=== PATIENT | female | born 1995 | race Caucasian/White ===

== ENCOUNTER 2022-05-19 20:05 | Inpatient (IN) ==
--- NOTE | 2022-05-19 20:39 | History & Physical Report ---
Date of Service May 19, 2022 Assessment & Plan (1) Supervision of normal intrauterine in primigravida: Plan: Early labor her cervix is only 1 cm we will monitor for now the patient is scheduled to be induced in approximately 36 hours so likely if makes progress we will admit the patient History of Present Illness Primary Care Provider: Samantha Lazaro DO Current Estimate 05/12/22 LMP (Certain) 40w 2d Other Estimates 05/11/22 Ultrasound #1 40w 3d LMP: 08/05/21 : 2 Full term: 0 Premature: 0 Total Number of Induced Abortions: 0 Total Number of Spontaneous Abortions: 0 Ectopics: 1 Multiple births: 0 Number of Living Children: 0 and Delivery Plans Genital Herpes *Valtrex @ 36wks. Prior ectopic 2020 MTX, [facility] Prominent Renal pelves bilaterally *resolved. Allergies Allergy/AdvReac Type Severity Reaction Status Date / Time latex Allergy Severe rash and Verified 05/19/22 20:20 skin soreness cefdinir [From Omnicef] Allergy Intermediate Shortness Verified 05/19/22 20:20 of breath, hives nickel Allergy Intermediate Rash Verified 05/19/22 20:20 Home Medications Medication Instructions Recorded Confirmed Type levocetirizine 5 mg tablet (Xyzal) 5 mg PO DAILY PRN Allergy Symptoms 07/06/19 05/19/22 History valacyclovir 1 gram tablet 1,000 mg PO Q12H PRN genital 07/03/20 05/19/22 Rx (Valtrex) herpes 7 days #21 tabs prenat.vits,jose f,mov-ergo-vvrjf 1 tab PO DAILY 01/23/21 05/19/22 History Saccharomyces boulardii [Probiotic PO 09/27/21 05/14/22 History (S.boulardii)] albuterol sulfate 90 mcg/actuation 2 inh inhalation Q4H PRN Shortness 11/15/21 05/19/22 Rx breath activated powder inhaler Of Breath Or Wheezing #1 ea valacyclovir 500 mg tablet 500 mg PO BID #60 tabs 04/16/22 05/19/22 Rx (Valtrex) Patient History Medical History Anxiety Asthma Depression Nausea Surgical History History of esophagogastroduodenoscopy (EGD) History of wisdom tooth extraction S/P tonsillectomy and adenoidectomy Family History Mother Anxiety Father Anxiety Alcohol abuse Depression Brother Anxiety Depression Drug abuse Grandmother (Paternal) History of kidney cancer Depression Diabetes Myocardial infarction Aunt Breast cancer Grandmother (Maternal) Diabetes Grandfather (Paternal) Diabetes Grandfather (Maternal) Diabetes Denies family history of Ovarian cancer Prostate cancer Colorectal cancer Social History (Updated 09/27/21 @ 13:14 by Mar Butsamante) Smoking Status: Never smoker Tobacco Type: Cigarettes Second Hand Exposure: No; Hx Alcohol Use: No Hx Substance Use: Yes (medical marijuana) Last Used Substance: Days (ago) Last Used Substance Other:: 06/18/20 Preferred Language: Indonesian Communication Ability: Effective Visual Impairment: Limited Hearing Ability: Normal 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 Beliefs That Will Affect Care: None marital status: Single marital status details: Juan Carlos (27) [phone] Current Living Situation: Significant Other Current Living Situation Comment: lives with FOB current occupational status: employed 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
[2022-05-19] MEDS ORDERED: LIDOCAINE 1% LOCAL 20 ML VIAL INFIL PRN (22:40)
[2022-05-19] MEDS ORDERED: LACTATED RINGER'S 1,000 ML IV PRN (22:40)
[2022-05-19] MEDS ORDERED: OXYTOCIN 30 UNITS/500 ML BAG IV PRN (22:40)
[2022-05-19 23:02] LABS: Hematocrit (blood only) 36.8 % (34.1-44.9); Hemoglobin 12.7 g/dl (12.0-16.0); Mean Corpuscular Hemoglobin 29.5 pg (25.0-34.0); Mean Corpuscular Hgb Conc 34.5 g/dL (32.0-36.0); Mean Corpuscular Volume 85.6 fL (80.0-100.0); Platelet Count 166 K/uL (130-400); RDW Coefficient of Variation 14.3 % (11.5-14.5); RDW Standard Deviation 44.1 fL (36.4-46.3); White Blood Count 14.97 K/ul (4.8-10.8)
--- NOTE | 2022-05-20 06:05 | Labor Progress Brief Note ---
Date of Service May 20, 2022 Patient unmedicated and largely wishes minimal intervention at this stage she is 9 cm unmedicated heart rate is category 1 patient does not wish pain medication at this time or intervention following closely Assessment & Plan Admission and Anticipated Discharge Date Admission Date: May 19, 2022 Results & Data ([facility]) Vital Signs (Past 12 Hours) Vital Signs Temp Pulse Resp BP 05/20/22 03:50 98.4 F 89 20 134/61 05/20/22 02:03 98.1 F 05/20/22 00:41 98.4 F 05/19/22 23:41 98.4 F 78 20 131/72 05/19/22 20:19 98.4 F 98 H 18 136/86 05/19/22 20:22 98.4 F 98 H 18 136/86 Coding Level of Care Code None
--- NOTE | 2022-05-20 09:18 | Delivery Summary ---
Vaginal Delivery Summary Date of Service May 20, 2022 Vaginal Delivery Summary and 2nd Degree LAC PREOPERATIVE DIAGNOSIS: 1. Single intrauterine at 41 1/7 wga 2. Labor POSTOPERATIVE DIAGNOSIS: 1. Single intrauterine at 41 1/7 wga 2. Labor 3. Delivered PROCEDURE: 1. Normal spontaneous vaginal delivery. SURGEON: Lore Jeffries MD ANESTHESIA: Local ESTIMATED BLOOD LOSS: 300 mL FLUIDS: Continuous LR. URINE OUTPUT: None. COMPLICATIONS: None. CONDITION: Stable. INDICATIONS: 27 yo at 41 1/7 wga presented last evening in labor. She progressed spontaneously to complete and desired to push FINDINGS: A viable female , weight pending with Apgars of 7 and 9 at 1 and 5 minutes respectively. SPECIMEN: Cord blood, cord gas, placenta OPERATIVE REPORT: The patient progressed to 10 cm, 100% effaced and +2 station, pushed over intact perineum with anesthesia to deliver a viable female infant, weight and Apgars as above. Head of delivered in SARBJIT position. No nuchal cord was present. Body and shoulders were delivered without difficulty. was delivered to maternal abdomen and nursing staff. Delayed cord clamping was delayed due to infant not being as vigorous. Cord was clamped and cut. Cord blood was obtained. Placenta delivered spontaneously intact with 3-vessel cord and what appeared to be a succenturiate lobe. IV oxytocin and fundal massage were given for excellent hemostasis. Vagina, cervix, perineum, and placenta were inspected. A second degree laceration was noted and repaired in the usual fashion with 3-0 vicryl after local anesthetic was given. A right side tear in the hymenal ring was made hemostatic with an interrupted stitch. Sponge and needle counts correct x2. No sponges were left behind. Mother and stable in immediate period. [facility] [place] Vaginal Delivery Codes: 41093 global code for the antepartum, delivery, and post- Delivery Type Details: and 2nd Degree LAC
[2022-05-20] MEDS ORDERED: DIPHTHERIA/TETANUS/PERTUSSIS 0.5 ML SYR/VIAL IM ONE (09:30)
[2022-05-20] MEDS ORDERED: OXYTOCIN 30 UNITS/500 ML BAG IV PRN (09:30)
[2022-05-20] MEDS ORDERED: HYDROCORTISONE ACETATE 25 MG SUPP PR PRN (09:30)
[2022-05-20] MEDS ORDERED: BENZOCAINE 20% AER SPR 82.5 GM CAN EXT PRN (09:30)
[2022-05-20] MEDS ORDERED: ALBUTEROL HFA 8 GM INHALER INH PRN (09:37)
[2022-05-20] MEDS ORDERED: CETIRIZINE HCL 10 MG TABLET PO PRN (09:39)
[2022-05-20] MEDS: IBUPROFEN 600 MG TAB PO PRN ×3 (09:52→20:06)
[2022-05-20] MEDS: ACETAMINOPHEN 325 MG TAB PO PRN ×2 (10:10→16:36)
[2022-05-20] MEDS: DOCUSATE SODIUM 100 MG CAP PO SCH (20:06)
[2022-05-21] MEDS: ACETAMINOPHEN 325 MG TAB PO PRN ×2 (00:09→14:14)
--- NOTE | 2022-05-21 05:51 | Obstetrical Progress Note ---
Date of Service <Aranza Lottabiliokaila - Last Filed: 05/21/22 06:48> May 21, 2022 Assessment & Plan <Aranza Lottabiliokaila - Last Filed: 05/21/22 06:48> (1) care following vaginal delivery: Patient is PPD 1 s/p and doing well. - Eating well, voiding well, ambulating well - Vitals reviewed and within normal limits - Pain well controlled with analgesics - OOB, ambulation, diet progression as tolerated - Blood type: B+, GBS neg, rubella immune - Plan to discharge tomorrow - After discharge, 6 week follow up with Dr. Jeffries <Lore Jeffries MD - Last Filed: 05/21/22 07:17> (1) care following vaginal delivery: Subjective <Aranza Lottabiliokaila - Last Filed: 05/21/22 06:48> Patient is a 27 yo female who is now PPD #1 following spontaneous vaginal delivery at 41+1 weeks. Reports feeling well this morning. She denies abdominal cramping and 0/10 pain well managed on analgesics. Voiding without issue. Tolerating regular meals overnight and able to ambulate some. She has passed gas but no bowel movements. Persistent lochia with some improvement this morning. Currently breast feeding. Review of Systems Denies fever, chills, sweats. Denies SOB, difficulty breathing, chest pain, palpitations, and chest pressure. Denies breast pain. Denies dysuria. Denies headache or changes in vision. Physical Exam <Aranza LottDO salvador - Last Filed: 05/21/22 06:48> General: Alert and oriented. No acute distress. CV: Regular rate and rhythm. No murmurs. Respiratory: CTA bilaterally. No rhonchi, wheezes, or crackles. No increased work of breathing. Abdomen: Positive bowel sounds. Soft, nontender, non distended. Uterus: Fundus firm and palpable 3 cm below the umbilicus. Lower extremities: Bilateral, nonpitting LE edema from feet to mid calf. No deep calf pain. David's negative bilaterally. Results & Data ([facility]) <Aranza SteeleDikr Maxwell DO - Last Filed: 05/21/22 06:48> Vital Signs (Past 12 Hours) Vital Signs Temp Pulse Resp BP BP Pulse Ox O2 Del Method 05/21/22 03:45 36.7 C 77 16 112/67 98 Room Air 05/21/22 00:00 36.9 C 78 18 115/76 97 Room Air 05/20/22 20:00 37 C 87 16 111/74 100 Room Air <Lore Jeffries MD - Last Filed: 05/21/22 07:17> Co-Signing Physician Notes Resident Physician Supervision Note: I interviewed and examined the patient. Discussed with Dr. Maxwell and agree with findings and plan as documented in the note. Any exceptions or clarifications are listed here: PP1 s/p , doing well. VSS, exam benign and wnl. Continue routine pp care Documented By: Lore Jeffries MD Resident Activity Tracking <Aranza Maxwell DO - Last Filed: 05/21/22 06:48> Resident Involvement: Resident Care Provided Care Provided: OB Delivery
[2022-05-21 06:33] LABS: Hematocrit (blood only) 28.8 % (34.1-44.9); Hemoglobin 9.7 g/dl (12.0-16.0)
[2022-05-21] MEDS: IBUPROFEN 600 MG TAB PO PRN ×2 (08:11→20:38)
[2022-05-21] MEDS: PRENATAL VITAMIN 1 TAB PO SCH (08:11)
[2022-05-21] MEDS: DOCUSATE SODIUM 100 MG CAP PO SCH ×2 (08:11→20:37)
[2022-05-21] MEDS ORDERED: bisacodyL 5 MG TABEC PO SCH (20:00)
--- NOTE | 2022-05-22 06:22 | Obstetrical Progress Note ---
Date of Service <Aranza SteeleDirk Maxwell DO - Last Filed: 05/22/22 07:00> May 22, 2022 Assessment & Plan <Aranza SteeleDirk Maxwell DO - Last Filed: 05/22/22 07:00> (1) care following vaginal delivery: Patient is PPD 2 s/p and doing well. - Eating well, voiding well, ambulating well - Vitals reviewed and within normal limits - Pain well controlled with analgesics - OOB, ambulation, diet progression as tolerated - Blood type: B+, GBS neg, rubella immune - Plan to discharge today - After discharge, 6 week follow up with Dr. Jeffries <Bea Smith MD, FACOG - Last Filed: 05/22/22 07:47> (1) care following vaginal delivery: Day #:: 2 Subjective <Aranza Bell DO Hans - Last Filed: 05/22/22 07:00> Patient is a 27 yo female who is now PPD #2 following spontaneous vaginal delivery at 41+1 weeks. Reports feeling well this morning. She reports abdominal cramping and 4/10 pain well managed on analgesics. Voiding without issue. Tolerating regular meals overnight and able to ambulate some. She has passed gas and had bowel movements. Persistent lochia with some improvement this morning. Currently breast feeding. Pt does endorse some anxiety and chest tightness that feels similar to tightness she has had in the past. She was managing her anxiety with medical marijuana before but stopped while she was . She explains she may need to follow up with her PCP to discuss her anxiety. Review of Systems Denies fever, chills, sweats. Denies SOB, difficulty breathing, chest pain, palpitations, and chest pressure. Endorses some chest tightness while feeling anxious. Denies breast pain. Denies dysuria. Denies headache or changes in vision. Physical Exam <Aranzaanushka Maxwell DO - Last Filed: 05/22/22 07:00> General: Alert and oriented. No acute distress. CV: Regular rate and rhythm. No murmurs. Respiratory: CTA bilaterally. No rhonchi, wheezes, or crackles. No increased work of breathing. Abdomen: Positive bowel sounds. Soft, nontender, non distended. Uterus: Fundus firm and palpable 3 cm below the umbilicus. Lower extremities: Bilateral, nonpitting LE edema from feet to mid calf. No deep calf pain. David's negative bilaterally. Results & Data ([facility]) <Aranza Maxwell DO - Last Filed: 05/22/22 07:00> Vital Signs (Past 12 Hours) Vital Signs Temp Pulse Resp BP Pulse Ox O2 Del Method 05/22/22 00:30 36.9 C 92 H 18 118/76 97 Room Air 05/21/22 19:45 37.1 C 89 18 119/75 98 Room Air <Bea Smith MD, FACOG - Last Filed: 05/22/22 07:47> Co-Signing Physician Notes Resident Physician Supervision Note: I was present with Dr. Maxwell during the history and exam. I discussed the case with the resident and agree with the findings and plan as documented in the note. Any exceptions or clarifications are listed here: doing well with nursing, eating, and voiding. having decreased bleeding. having some anxiety, identifies that in her past, used zoloft in past and did not like. was using MJ, aware we do not rec. no HI or SI, contracts for safety. no history of tirso. discussed use of ssri, pt does feel she may need, explained how it works. wants me to send to her pharm, plan lexapro 10mg daily. needs 2wk appt in our office to check mood, irregardless of whether she starts the ssri. states has good relationship with pcp and may also reach out to her. all d/c instructions reviewed. Documented By: Bea Smith MD, FACOG Resident Activity Tracking <Aranza Maxwell DO - Last Filed: 05/22/22 07:00> Resident Involvement: Resident Care Provided Care Provided: OB Delivery
[2022-05-22] MEDS: ACETAMINOPHEN 325 MG TAB PO PRN (08:32)
[2022-05-22] MEDS: DOCUSATE SODIUM 100 MG CAP PO SCH (08:32)
[2022-05-22] MEDS: PRENATAL VITAMIN 1 TAB PO SCH (08:33)
== END 2022-05-22 14:15 | disposition home or self-care (01) | DRG 807 ==
LOC: OPB 20:05 → 4S1 20:07 → 4E2 05-20 11:51

== ENCOUNTER 2024-05-09 23:58 | Inpatient (IN) ==
[2024-05-10] MEDS ORDERED: OXYTOCIN 30 UNITS/NSS 30 UNITS/500 ML BAG IV PRN ×2 (00:30→20:40)
[2024-05-10] MEDS ORDERED: LIDOCAINE 1% LOCAL 20 ML VIAL INFIL PRN (00:30)
--- NOTE | 2024-05-10 00:33 | History & Physical Report ---
Date of Service May 10, 2024 Assessment & Plan (1) Encounter for supervision of normal in multigravida: Plan: Labs, EFM/toco. Does not desire epidural. History of Present Illness Chief Complaint: labor Primary Care Provider: Samantha Lazaro, DO 29yo @ 40 01/21, came to L&D with contractions. Allergies Allergy/AdvReac Type Severity Reaction Status Date / Time latex Allergy Severe rash and Verified 05/10/24 00:04 skin soreness cefdinir [From Omnicef] Allergy Intermediate Shortness Verified 05/10/24 00:04 of breath, hives nickel Allergy Intermediate Rash Verified 05/10/24 00:04 Home Medications Medication Instructions Recorded Confirmed Type hsnoofgeuzmv-dzgm-uxifnadw PO 05/06/23 05/05/24 History albuterol sulfate 90 mcg/actuation 2 inh inhalation Q4H PRN Shortness 07/31/23 05/05/24 Rx breath activated powder inhaler Of Breath Or Wheezing #1 ea levocetirizine [Xyzal] PO 09/16/23 05/05/24 History valacyclovir 500 mg tablet 500 mg PO BID #60 tabs 04/08/24 05/05/24 Rx (Valtrex) Patient History Medical History Varicella vaccination care following vaginal delivery Depression Anxiety Asthma Colitis Surgical History History of esophagogastroduodenoscopy (EGD) S/P tonsillectomy and adenoidectomy History of wisdom tooth extraction Family History Mother Anxiety Father Anxiety Alcohol abuse Depression Brother Anxiety Depression Drug abuse Grandmother (Paternal) History of kidney cancer Depression Diabetes Myocardial infarction Aunt Breast cancer Hypothyroid Grandmother (Maternal) Diabetes Grandfather (Paternal) Diabetes Grandfather (Maternal) Diabetes Denies family history of Ovarian cancer Prostate cancer Colorectal cancer Social History Smoking Status: Never smoker Second Hand Exposure: No; Do You Dip or Chew Tobacco: No; Hx Alcohol Use: Yes Alcohol Intake Frequency: Monthly or Less Hx Substance Use: No Preferred Language: Slovak Communication Ability: Effective Visual Impairment: Partially Limited Hearing Ability: Normal 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 Beliefs That Will Affect Care: None marital status: Single marital status details: Sree Rangel (29) [phone] Current Living Situation: Alone and Significant Other Current Living Situation Comment: lives with SREE, daughter, dogs, 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 occupational status: employed current occupation: [employer] How many Children do You have: 1 Feels Safe at Home: Yes 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 [employer] Childhood Exposure to Second-Hand Smoke: No Diet: regular caffeine: Yes (Coffee x 1 per day.) during the past year weight has: remained stable Dental Care, Regularly: Yes Physical Activity Frequency: Daily Seatbelt Use: always Sunscreen Use: Yes Assistive Devices: Contacts and Glasses Review of Systems All systems reviewed & are unremarkable except as noted in HPI & below Physical Exam Physical Exam: T Cat 1 [place] Q 2-4 SVE 5cm per RN Constitutional: WD/WN, vitals as above Respiratory: normal respiratory effort, lungs clear to auscultation no respiratory distress Cardiovascular: Rate/Rhythm: regular rate and regular rhythm Gastrointestinal (Abdomen): Inspection/Auscultation: abdomen normal to inspection Percussion/Palpation: abdomen soft; abdomen nontender Gravid. No s/s chorio or abruption. Skin: no rashes, warm and dry Psychiatric: A+Ox3, euthymic affect Results & Data Vital Signs (Past 12 Hours) Vital Signs Pulse BP 05/10/ 00:11 100 H 137/66 Coding Level of Care Code None Diagnoses Encounter for supervision of normal in multigravida Z34.80
[2024-05-10 00:55] LABS: Hematocrit (blood only) 33.3 % (37.0-47.0); Hemoglobin 11.6 g/dl (12.0-16.0); Mean Corpuscular Hgb Conc 34.8 g/dL (32.0-36.0); Mean Platelet Volume 10.7 fL (9.4-12.4); Platelet Count 144 K/uL (130-400); RDW Coefficient of Variation 13.5 % (11.5-14.5); RDW Standard Deviation 41.9 fL (36.4-46.3); Red Blood Count 3.87 M/uL (4.20-5.40); White Blood Count 19.18 K/ul (4.8-10.8)
--- NOTE | 2024-05-10 06:42 | Labor Progress Brief Note ---
Date of Service May 10, 2024 Subjective Uncomfortable with contractions. FHT Cat 1 [place] Q 2-4 SVE 5/100/-2 AROM clear fluid. Continue labor. Assessment & Plan Admission and Anticipated Discharge Date Admission Date: May 10, 2024 Results & Data Vital Signs (Past 12 Hours) Vital Signs Temp Pulse Resp BP 05/10/24 01:56 18 05/10/24 01:56 36.5 C 18 05/10/24 01:50 96 H 133/62 05/10/24 00:11 100 H 137/66 05/10/24 00:09 36.7 C 18 Coding Level of Care Code None
[2024-05-10] MEDS: LACTATED RINGER'S 1,000 ML IV PRN (10:16)
[2024-05-10] MEDS ORDERED: BUPIVACAINE 0.25% PF 30 ML VIAL EPI PRN (10:24)
[2024-05-10] MEDS ORDERED: NALOXONE HCL 0.4 MG/1 ML VIAL/CARP IV PRN (10:24)
[2024-05-10] MEDS ORDERED: ePHEDrine sulfate 50 MG/ML AMP IV PRN (10:24)
[2024-05-10] MEDS ORDERED: diphenhydrAMINE 50 MG/ML VIAL IV PRN (10:24)
[2024-05-10] MEDS ORDERED: fentaNYL citrate PF 100 MCG/2 ML VIAL EPI PRN (10:24)
[2024-05-10] MEDS ORDERED: ROPIVACAINE 0.5% PF 5 MG/ML 20 ML VIAL EPI PRN (10:24)
[2024-05-10] MEDS ORDERED: NALOXONE HCL 1 MG in SODIUM CHLORIDE 0.9% 1,000 ML IV PRN (10:24)
[2024-05-10] MEDS ORDERED: NALBUPHINE HCL INJ 10 MG/ML AMP IV PRN (10:24)
[2024-05-10] MEDS ORDERED: LIDOCAINE 2% MPF LOCAL 5 ML VIAL EPI PRN (10:24)
[2024-05-10] MEDS ORDERED: SODIUM CHLORIDE 0.9% PF INJ 10 ML VIAL EPI PRN (10:24)
--- NOTE | 2024-05-10 10:24 | Anesthesiology Consultation ---
Date of Service May 10, 2024 Assessment & Plan Chart Review Chart Review: Acceptable Risk for Labor Epidural Consults Requested none History Height/Weight Height: 5 ft 4 in Weight: 99.798 kg Allergies Allergy/AdvReac Type Severity Reaction Status Date / Time latex Allergy Severe rash and Verified 05/10/24 00:04 skin soreness cefdinir [From Omnicef] Allergy Intermediate Shortness Verified 05/10/24 00:04 of breath, hives nickel Allergy Intermediate Rash Verified 05/10/24 00:04 Medications Home Medications Medication Instructions Recorded Confirmed Last Taken albuterol sulfate 90 mcg/actuation 2 inh inhalation Q4H PRN Shortness 07/31/23 05/10/24 Unknown breath activated powder inhaler Of Breath Or Wheezing #1 ea valacyclovir 500 mg tablet 500 mg PO BID #60 tabs 04/08/24 05/10/24 05/09/24 (Valtrex) levocetirizine 5 mg tablet (Xyzal) 5 mg PO DAILY 05/10/24 05/10/24 05/09/24 vitamin-ferrous sulfate 1 tab PO DAILY 05/10/24 05/10/24 05/09/24 27 mg iron-folic acid 0.8 mg tablet Active Medications Generic Name Dose Route Start Last Admin Trade Name Freq PRN Reason Stop Dose Admin Lactated Ringer's 1,000 mls @ 125 mls/hr 05/10/24 00:30 05/10/24 10:16 Lr IV 05/12/24 00:29 999 mls/hr .Q8H PRN Administration L&D Protocol Protocol Past Medical History Medical History Varicella vaccination care following vaginal delivery Depression Anxiety Asthma Colitis Past Family History Family History Mother Anxiety Father Anxiety Alcohol abuse Depression Brother Anxiety Depression Drug abuse Grandmother (Paternal) History of kidney cancer Depression Diabetes Myocardial infarction Aunt Breast cancer Hypothyroid Grandmother (Maternal) Diabetes Grandfather (Paternal) Diabetes Grandfather (Maternal) Diabetes Denies family history of Ovarian cancer Prostate cancer Colorectal cancer Past Surgical History Surgical History History of esophagogastroduodenoscopy (EGD) S/P tonsillectomy and adenoidectomy History of wisdom tooth extraction Social History Smoking Status: Never smoker Do You Dip or Chew Tobacco: No Hx Alcohol Use: Yes alcohol intake frequency: holidays/special occasions only Hx Substance Use: No substance use type: does not use Substance Use Type Other:: medical marijuana for anxiety Physical Exam Vital Signs Last Vital Signs Temp 36.7 C 05/10/24 06:41 Pulse 108 H 05/10/24 10:19 Resp 18 05/10/24 06:41 BP 145/59 H 05/10/24 10:19 Constitutional WD/WN, vitals as above Respiratory normal respiratory effort, lungs clear to auscultation no respiratory distress Cardiovascular Rate/Rhythm: regular rate and regular rhythm Gastrointestinal (Abdomen) Inspection/Auscultation: abdomen normal to inspection Percussion/Palpation: abdomen soft; abdomen nontender Skin no rashes, warm and dry Psychiatric A+Ox3, euthymic affect Testing Laboratory Results 05/10/24 00:40 Blood Type B Positive 05/10/24 00:40 Antibody Screen NEGATIVE 05/10/24 00:40
--- NOTE | 2024-05-10 10:28 | Labor Progress Brief Note ---
Date of Service May 10, 2024 Subjective uncomfortable w/ ctx Assessment & Plan (1) Encounter for supervision of normal in multigravida: Plan: 29 yo at 40 6/7 wga presented in labor VSS Fetus cat 2 w/ intermit variables but reassuring Labor - unchanged from nursing exam a few hours ago. Pt getting more uncomfortable and since not progressed yet desires epidural GBS neg desires epidural Admission and Anticipated Discharge Date Admission Date: May 10, 2024 Physical Exam Genitourinary: Manual OB Exam: + cervical dilation 6 cm, + cervical effacement 80% (maybe slight swelling beginning anteriorly) and + station -1 and 0 OB Exam Monitor Tracing: + external FHT monitor used, + external uterine monitor used (q2-4) and + category II (125-130/mod/+accel/intermit variables) Results & Data Vital Signs (Past 12 Hours) Vital Signs Temp Pulse Resp BP 05/10/24 10:19 108 H 145/59 H 05/10/24 10:15 98 H 140/64 05/10/24 09:02 94 H 128/60 05/10/24 07:02 100 H 128/67 05/10/24 06:41 18 05/10/24 06:41 98.1 F 18 05/10/24 01:56 18 05/10/24 01:56 97.7 F 18 05/10/24 01:50 96 H 133/62 05/10/24 00:11 100 H 137/66 05/10/24 00:09 98.1 F 18 Coding Level of Care Code None Diagnoses Encounter for supervision of normal in multigravida Z34.80
[2024-05-10] MEDS: fentANYL 2 MCG/ML BUPIVacaine 0.125%-NSS 100ML BAG ONE (10:48)
[2024-05-10] MEDS: OXYTOCIN 30 UNITS/NSS 30 UNITS/500 ML BAG IV PRN (12:11)
--- NOTE | 2024-05-10 12:13 | Labor Progress Brief Note ---
Date of Service May 10, 2024 Subjective comfortable w/ epidural Assessment & Plan (1) Encounter for supervision of normal in multigravida: Plan: 29 yo at 40 6/7 wga presented in labor VSS Fetus cat 2 w/ intermit variables but reassuring and responds to scalp stim Labor - comfortable, maybe slight progress but not much. Discussed pitocin, risks and benefits and pt agreeable GBS neg epidural in place Admission and Anticipated Discharge Date Admission Date: May 10, 2024 Physical Exam Genitourinary: Manual OB Exam: + cervical dilation 6 cm, + cervical effacement 80% and + station -1 and 0 OB Exam Monitor Tracing: + external FHT monitor used, + external uterine monitor used (q2-4) and + category II (125- 130/mod/+accel/intermit variables) Results & Data Vital Signs (Past 12 Hours) Vital Signs Temp Pulse Resp BP Pulse Ox 05/10/24 12:06 97 H 99 05/10/24 12:01 91 H 100 05/10/24 11:58 96 H 112/58 L 05/10/24 11:56 95 H 100 05/10/24 11:51 96 H 100 05/10/24 11:46 97 H 99 05/10/24 11:44 97 H 114/70 05/10/24 11:41 95 H 100 05/10/24 11:36 92 H 99 05/10/24 11:31 98 H 98 05/10/24 11:30 16 05/10/24 11:30 98.1 F 16 05/10/24 11:26 92 H 100 05/10/24 11:21 80 100 05/10/24 11:16 84 99 05/10/24 11:12 88 120/58 L 05/10/24 11:11 92 H 100 05/10/24 11:10 88 120/56 L 05/10/24 11:08 92 H 123/61 05/10/24 11:06 100 05/10/24 11:06 94 H 05/10/24 11:06 91 H 129/58 L 05/10/24 11:04 97 H 130/59 L 05/10/24 11:02 100 H 136/63 05/10/24 11:01 102 H 98 05/10/24 11:00 96 H 127/63 05/10/24 10:58 97 H 127/58 L 05/10/24 10:56 97 H 138/65 99 05/10/24 10:52 95 H 134/61 05/10/24 10:51 99 H 98 05/10/24 10:46 103 H 98 05/10/24 10:44 99 H 153/67 H 05/10/24 10:41 98 05/10/24 10:41 103 H 05/10/24 10:41 106 H 162/72 H 05/10/24 10:40 113 H 91 05/10/24 10:37 113 H 134/66 05/10/24 10:36 97 05/10/24 10:36 107 H 05/10/24 10:36 102 H 133/69 05/10/24 10:31 94 H 99 05/10/24 10:26 103 H 99 05/10/24 10:19 108 H 145/59 H 05/10/24 10:15 98 H 140/64 05/10/24 09:40 20 05/10/24 09:40 97.7 F 20 05/10/24 09:02 94 H 128/60 05/10/24 07:02 100 H 128/67 05/10/24 06:41 18 05/10/24 06:41 98.1 F 18 05/10/24 01:56 18 05/10/24 01:56 97.7 F 18 05/10/24 01:50 96 H 133/62 Coding Level of Care Code None Diagnoses Encounter for supervision of normal in multigravida Z34.80
--- NOTE | 2024-05-10 15:42 | Labor Progress Brief Note ---
Date of Service May 10, 2024 Subjective some pressure Assessment & Plan (1) Encounter for supervision of normal in multigravida: Plan: 29 yo at 40 6/7 wga presented in labor VSS Fetus cat 2 w/ intermit variables but reassuring and responds to scalp stim Labor - progress noted, pit at 9. Continue augmentation. Will try some repositioning to help get baby down GBS neg epidural in place Admission and Anticipated Discharge Date Admission Date: May 10, 2024 Physical Exam Genitourinary: Manual OB Exam: + cervical dilation 9 cm, + cervical effacement 90% and + station 0 and + 1 OB Exam Monitor Tracing: + external FHT monitor used, + external uterine monitor used (q2-4) and + category II (150/mod/+accel/intermit variables) Results & Data Vital Signs (Past 12 Hours) Vital Signs Temp Pulse Resp BP Pulse Ox 05/10/24 15:36 122 H 99 05/10/24 15:34 130 H 90 05/10/24 15:31 143 H 100 05/10/24 15:26 98 H 97 05/10/24 15:21 123 H 100 05/10/24 15:16 118 H 98 05/10/24 15:14 115 H 127/74 05/10/24 15:11 111 H 99 05/10/24 15:06 104 H 100 05/10/24 15:02 114 H 82 L 05/10/24 15:01 115 H 99 05/10/24 14:56 116 H 99 05/10/24 14:51 121 H 96 05/10/24 14:46 130 H 100 05/10/24 14:41 118 H 100 05/10/24 14:36 121 H 100 05/10/24 14:31 101 H 100 05/10/24 14:30 100 H 116/57 L 05/10/24 14:28 101 H 92 05/10/24 14:26 102 H 100 05/10/24 14:23 100 H 139/64 05/10/24 14:21 106 H 100 05/10/24 14:16 105 H 100 05/10/24 14:15 104 H 92 05/10/24 14:11 103 H 100 05/10/24 14:07 104 H 94 05/10/24 14:06 105 H 100 05/10/24 14:01 103 H 99 05/10/24 13:59 98 H 138/63 05/10/24 13:56 98 H 100 05/10/24 13:51 100 H 100 05/10/24 13:46 104 H 99 05/10/24 13:44 100 H 136/63 05/10/24 13:41 99 H 97 05/10/24 13:36 92 H 97 05/10/24 13:31 89 97 05/10/24 13:28 100 H 130/61 05/10/24 13:26 92 H 98 05/10/24 13:21 102 H 99 05/10/24 13:16 90 99 05/10/24 13:14 91 H 135/62 05/10/24 13:11 100 H 99 05/10/24 13:06 89 99 05/10/24 13:01 90 100 05/10/24 12:59 100 H 134/64 05/10/24 12:56 101 H 99 05/10/24 12:51 90 99 05/10/24 12:46 88 97 05/10/24 12:44 87 129/58 L 05/10/24 12:41 89 98 05/10/24 12:36 90 99 05/10/24 12:31 96 H 100 05/10/24 12:30 20 05/10/24 12:30 20 05/10/24 12:29 97 H 132/62 05/10/24 12:26 93 H 100 05/10/24 12:21 99 H 99 05/10/24 12:16 93 H 100 05/10/24 12:14 96 H 129/68 05/10/24 12:11 93 H 99 05/10/24 12:06 97 H 99 05/10/24 12:01 91 H 100 05/10/24 11:58 96 H 112/58 L 05/10/24 11:56 95 H 100 05/10/24 11:51 96 H 100 05/10/24 11:46 97 H 99 05/10/24 11:44 97 H 114/70 05/10/24 11:41 95 H 100 05/10/24 11:36 92 H 99 05/10/24 11:31 98 H 98 05/10/24 11:30 16 05/10/24 11:30 98.1 F 16 05/10/24 11:26 92 H 100 05/10/24 11:21 80 100 05/10/24 11:16 84 99 05/10/24 11:12 88 120/58 L 05/10/24 11:11 92 H 100 05/10/24 11:10 88 120/56 L 05/10/24 11:08 92 H 123/61 05/10/24 11:06 100 05/10/24 11:06 94 H 05/10/24 11:06 91 H 129/58 L 05/10/24 11:04 97 H 130/59 L 05/10/24 11:02 100 H 136/63 05/10/24 11:01 102 H 98 05/10/24 11:00 96 H 127/63 05/10/24 10:58 97 H 127/58 L 05/10/24 10:56 97 H 138/65 99 05/10/24 10:52 95 H 134/61 05/10/24 10:51 99 H 98 05/10/24 10:46 103 H 98 05/10/24 10:44 99 H 153/67 H 05/10/24 10:41 98 05/10/24 10:41 103 H 05/10/24 10:41 106 H 162/72 H 05/10/24 10:40 113 H 91 05/10/24 10:37 113 H 134/66 05/10/24 10:36 97 05/10/24 10:36 107 H 05/10/24 10:36 102 H 133/69 05/10/24 10:31 94 H 99 05/10/24 10:26 103 H 99 05/10/24 10:19 108 H 145/59 H 05/10/24 10:15 98 H 140/64 05/10/24 09:40 20 05/10/24 09:40 97.7 F 20 05/10/24 09:02 94 H 128/60 05/10/24 07:02 100 H 128/67 05/10/24 06:41 18 05/10/24 06:41 98.1 F 18 Coding Level of Care Code None Diagnoses Encounter for supervision of normal in multigravida Z34.80
--- NOTE | 2024-05-10 17:27 | Labor Progress Brief Note ---
Date of Service May 10, 2024 Subjective more pressure but nauseous Assessment & Plan (1) Encounter for supervision of normal in multigravida: Plan: 29 yo at 40 6/7 wga presented in labor VSS Fetus cat 2 w/ intermit variables but reassuring and responds to scalp stim. Deeper variable while vomiting but recovers Labor - head lower but ant lip still noted and to pt's right. Pt very nauseous so will give nausea meds and try knee chest to try to make lip go away rather than reduce GBS neg epidural in place Admission and Anticipated Discharge Date Admission Date: May 10, 2024 Physical Exam Genitourinary: Manual OB Exam: + cervical dilation (9.5), + cervical effacement 90% and + station + 1 and + 2 OB Exam Monitor Tracing: + external FHT monitor used, + external uterine monitor used (q2-4) and + category II (150/mod/+accel/intermit variables) Results & Data Vital Signs (Past 12 Hours) Vital Signs Temp Pulse Resp BP Pulse Ox 05/10/24 17:21 112 H 100 05/10/24 17:16 109 H 99 05/10/24 17:14 109 H 126/58 L 05/10/24 17:11 99 H 100 05/10/24 17:09 101 H 94 05/10/24 17:06 97 H 100 05/10/24 17:01 113 H 100 05/10/24 16:59 107 H 133/57 L 05/10/24 16:56 104 H 100 05/10/24 16:51 109 H 100 05/10/24 16:46 105 H 100 05/10/24 16:43 108 H 117/55 L 05/10/24 16:41 108 H 99 05/10/24 16:36 104 H 100 05/10/24 16:31 99 H 100 05/10/24 16:30 100 H 113/53 L 05/10/24 16:26 101 H 99 05/10/24 16:23 106 H 109/57 L 05/10/24 16:21 106 H 100 05/10/24 16:20 18 05/10/24 16:20 98.4 F 18 05/10/24 16:16 108 H 100 05/10/24 16:11 107 H 99 05/10/24 16:06 97 H 99 05/10/24 16:01 102 H 98 05/10/24 15:56 103 H 98 05/10/24 15:51 95 H 98 05/10/24 15:46 96 H 97 05/10/24 15:41 107 H 98 05/10/24 15:36 122 H 99 05/10/24 15:34 130 H 90 05/10/24 15:31 143 H 100 05/10/24 15:26 98 H 97 05/10/24 15:21 123 H 100 05/10/24 15:16 118 H 98 05/10/24 15:14 115 H 127/74 05/10/24 15:11 111 H 99 05/10/24 15:06 104 H 100 05/10/24 15:02 114 H 82 L 05/10/24 15:01 115 H 99 05/10/24 14:56 116 H 99 05/10/24 14:51 121 H 96 05/10/24 14:46 130 H 100 05/10/24 14:41 118 H 100 05/10/24 14:36 121 H 100 05/10/24 14:31 101 H 100 05/10/24 14:30 100 H 116/57 L 05/10/24 14:28 101 H 92 05/10/24 14:26 102 H 100 05/10/24 14:23 100 H 139/64 05/10/24 14:21 106 H 100 05/10/24 14:16 105 H 100 05/10/24 14:15 104 H 92 05/10/24 14:11 103 H 100 05/10/24 14:07 104 H 94 05/10/24 14:06 105 H 100 05/10/24 14:01 103 H 99 05/10/24 13:59 98 H 138/63 05/10/24 13:56 98 H 100 05/10/24 13:51 100 H 100 05/10/24 13:46 104 H 99 05/10/24 13:44 100 H 136/63 05/10/24 13:41 99 H 97 05/10/24 13:36 92 H 97 05/10/24 13:31 89 97 05/10/24 13:28 100 H 130/61 05/10/24 13:26 92 H 98 05/10/24 13:21 102 H 99 05/10/24 13:16 90 99 05/10/24 13:14 91 H 135/62 05/10/24 13:11 100 H 99 05/10/24 13:06 89 99 05/10/24 13:01 90 100 05/10/24 12:59 100 H 134/64 05/10/24 12:56 101 H 99 05/10/24 12:51 90 99 05/10/24 12:46 88 97 05/10/24 12:44 87 129/58 L 05/10/24 12:41 89 98 05/10/24 12:36 90 99 05/10/24 12:31 96 H 100 05/10/24 12:30 20 05/10/24 12:30 20 05/10/24 12:29 97 H 132/62 05/10/24 12:26 93 H 100 05/10/24 12:21 99 H 99 05/10/24 12:16 93 H 100 05/10/24 12:14 96 H 129/68 05/10/24 12:11 93 H 99 05/10/24 12:06 97 H 99 05/10/24 12:01 91 H 100 05/10/24 11:58 96 H 112/58 L 05/10/24 11:56 95 H 100 05/10/24 11:51 96 H 100 05/10/24 11:46 97 H 99 05/10/24 11:44 97 H 114/70 05/10/24 11:41 95 H 100 05/10/24 11:36 92 H 99 05/10/24 11:31 98 H 98 05/10/24 11:30 16 05/10/24 11:30 98.1 F 16 05/10/24 11:26 92 H 100 05/10/24 11:21 80 100 05/10/24 11:16 84 99 05/10/24 11:12 88 120/58 L 05/10/24 11:11 92 H 100 05/10/24 11:10 88 120/56 L 05/10/24 11:08 92 H 123/61 05/10/24 11:06 100 05/10/24 11:06 94 H 05/10/24 11:06 91 H 129/58 L 05/10/24 11:04 97 H 130/59 L 05/10/24 11:02 100 H 136/63 09/24/24 11:01 102 H 98 05/10/24 11:00 96 H 127/63 05/10/24 10:58 97 H 127/58 L 05/10/24 10:56 97 H 138/65 99 05/10/24 10:52 95 H 134/61 05/10/24 10:51 99 H 98 05/10/24 10:46 103 H 98 05/10/24 10:44 99 H 153/67 H 05/10/24 10:41 98 05/10/24 10:41 103 H 05/10/24 10:41 106 H 162/72 H 05/10/24 10:40 113 H 91 05/10/24 10:37 113 H 134/66 05/10/24 10:36 97 05/10/24 10:36 107 H 05/10/24 10:36 102 H 133/69 05/10/24 10:31 94 H 99 05/10/24 10:26 103 H 99 05/10/24 10:19 108 H 145/59 H 05/10/24 10:15 98 H 140/64 05/10/24 09:40 20 05/10/24 09:40 97.7 F 20 05/10/24 09:02 94 H 128/60 05/10/24 07:02 100 H 128/67 05/10/24 06:41 18 05/10/24 06:41 98.1 F 18 Coding Level of Care Code None Diagnoses Encounter for supervision of normal in multigravida Z34.80
[2024-05-10] MEDS: ONDANSETRON INJ 2 MG/ML 2 ML VIAL IV PRN (17:31)
[2024-05-10] MEDS: fentANYL 2 MCG/ML BUPIVacaine 0.125%-NSS 100ML BAG EPI PRN (17:45)
[2024-05-10] MEDS: ONDANSETRON INJ 2 MG/ML 2 ML VIAL ONE (19:09)
--- NOTE | 2024-05-10 20:30 | Delivery Summary ---
Vaginal Delivery Summary Date of Service May 10, [address] [facility] PREOPERATIVE DIAGNOSIS: 1. Single intrauterine at 40 6/7 wga 2. Labor POSTOPERATIVE DIAGNOSIS: 1. Single intrauterine at 40 6/7 wga 2. Labor 3. Delivered PROCEDURE: 1. Normal spontaneous vaginal delivery. SURGEON: Lore Jeffries MD ANESTHESIA: Epidural. QUANTITATIVE BLOOD LOSS: 55 mL FLUIDS: Continuous LR. URINE OUTPUT: None. COMPLICATIONS: Shoulder dystocia lasting 80 seconds CONDITION: Stable. INDICATIONS: 29 yo at 40 6/7 wga presented with contractions increasing in frequency and intensity and found to be 5-6cm. She continued to progress and received an epidural for pain control. She was started on pitocin for augmentation and made slow change to complete and desired to push. FINDINGS: A viable male infant, weight 9lb 8oz with Apgars of 5 and 8 at 1 and 5 minutes respectively. Of note, pt was found to have a ?urethral cyst during intrapartum course SPECIMEN: Cord blood, cord gases OPERATIVE REPORT: The patient progressed to 10 cm, 100% effaced and +2 station, pushed over intact perineum with anesthesia to deliver a viable male , weight and Apgars as above. Head of delivered in SARBJIT position. Nuchal cord noted but not easily reduced. Body and shoulders did not deliver easily with gentle downward traction and shoulder dystocia was called. Head of bed was lowered, McRobert's maneuver and suprapubic pressure were applied bu shoulder did not deliver. Attempted to reach posterior arm but it could not be delivered through. Rotational maneuver was initiated and anterior shoulder did then deliver atraumatically. Remainder of body delivered without difficulty. Delayed cord clamping was deferred due to not immediately vigorous. Cord was clamped and cut and baby handed off to nursery staff. Cord segment and blood were obtained. Placenta delivered spontaneously intact with 3-vessel cord. IV oxytocin and fundal massage were given for excellent hemostasis. Vagina, cervix, perineum, and placenta were inspected. No lacerations were noted. Sponge and needle counts correct x2. No sponges were left behind. Mother and stable in immediate period. Pt and partner debriefed, questions answered to apparent satisfaction. [facility] [place] Vaginal Delivery Charge Vaginal Delivery Codes: 16942 global code for the antepartum, delivery, and po st- Delivery Type Details: [facility]
[2024-05-10] MEDS ORDERED: bisacodyL 10 MG SUPP PR PRN (20:40)
[2024-05-10] MEDS ORDERED: HYDROCORTISONE ACETATE 25 MG SUPP PR PRN (20:40)
[2024-05-10] MEDS ORDERED: ALBUTEROL HFA 8 GM INHALER INH PRN (20:43)
[2024-05-10] MEDS: IBUPROFEN 600 MG TAB PO PRN (20:48)
[2024-05-10 20:52] LABS: Base Excess Cord Arterial Bld -8.1 mEq/L (-9-1.8); CO2 Cord Arterial Blood 37 mmHg (39.1-73.5); HCO3 Cord Arterial Blood 18 mmol/L (19.7-28.5); Oxygen Sat Cord Arterial Blood 68.1 % (<60); PO2 Cord Arterial Blood 33 mmHg (4.1-31.7); pH Cord Arterial Blood 7.29 (7.1-7.38)
[2024-05-10 20:53] LABS: Cord Venous Blood PCO2 82 mmHg (30.4-57.2); Cord Venous Blood PO2 < 20 mmHg (14.1-43.3); Cord Venous Blood pH < 7.00 (7.20-7.44); O2 Saturation Cord Venous Bld < 60.0 % (<68)
[2024-05-10] MEDS: DOCUSATE SODIUM 100 MG CAP PO SCH (23:27)
[2024-05-11] MEDS: DIPHTHER/TETAN/PERTUS Vaccine (Tdap, Adol/Adult) 0.5mL IM ONE (03:22)
[2024-05-11] MEDS: ACETAMINOPHEN 325 MG TAB PO PRN (03:27)
--- NOTE | 2024-05-11 06:54 | Obstetrical Progress Note ---
Date of Service May 11, 2024 Assessment & Plan (1) Vaginal delivery: Plan: 1st PP Day following with Laceration in 29 years 40+6 at week POG Both mom and baby doing well. Discharge tomorrow morning as per protocol. Encouraged feeding, ambulation and bra. Admission and Anticipated Discharge Date Admission Date: May 10, 2024 Supervising Physician Co-Signing Physician Notes Resident Physician Supervision Note: I interviewed and examined the patient. Discussed with Dr. Crawford and agree with findings and plan as documented in the note. Any exceptions or clarifications are listed here: PP1 s/p , doing well. VSS, exam benign and wnl. Continue routine care. Has urethral cyst that was seen at time of delivery that was ?more noticeable due to swelling, plan to re-eval at pp visit Documented By: Lore Jeffries MD Subjective 1st PP Day following with Laceration in 29 years 40+6 at week POG. No active complains Both mom and baby doing well. Pain: Mild, intermittent Lochia: Moderate Diet: Regular Ob diet Gas: Not aware of passing, but no abdominal distension Peeing: Normal, no bladder distension Ambulation: Normally Review of Systems Review of Systems: No SOB, chest pain, leg pain No dizziness, headache, palpitation No Blurring of vision , fever Physical Exam Physical Exam: General: Alert and oriented. No acute distress. CVS: S1 S2+ No murmurs, regular rhythm. Respiratory: CTA bilaterally. No rhonchi, wheezes, or crackles. No increased work of breathing. Abdomen: Bowel sound +. Soft, nontender Uterus: Fundus firm and palpable few cm below the umbilicus. Lower extremities: No LE edema. No deep calf pain. Results & Data Vital Signs (Past 12 Hours) Vital Signs Temp Pulse Pulse Pulse Resp BP BP 05/11/24 03:20 36.4 C L 93 H 18 125/74 05/10/24 23:40 36.8 C 105 H 20 123/75 05/10/24 23:40 05/10/24 22:15 16 05/10/24 22:13 107 H 113/55 L 05/10/24 21:58 108 H 117/55 L 05/10/24 21:45 18 05/10/24 21:43 116/60 05/10/24 21:29 108 H 114/57 L 05/10/24 21:15 16 05/10/24 21:13 111 H 116/55 L 05/10/24 21:01 100 H 05/10/24 21:00 16 05/10/24 20:58 101 H 124/58 L 05/10/24 20:56 104 H 05/10/24 20:52 98 H 136/63 05/10/24 20:51 101 H 05/10/24 20:46 105 H 05/10/24 20:45 16 05/10/24 20:41 108 H 05/10/24 20:36 115 H 05/10/24 20:31 98 H 05/10/24 20:30 16 05/10/24 20:28 104 H 121/58 L 05/10/24 20:26 102 H 05/10/24 20:21 99 H 118/58 L 05/10/24 20:16 101 H 05/10/24 20:15 37.2 C 16 05/10/24 20:13 100 H 131/61 05/10/24 20:11 102 H 05/10/24 20:06 108 H 05/10/24 20:04 107 H 05/10/24 20:01 110 H 05/10/24 19:58 101 H 131/63 05/10/24 19:56 110 H 05/10/24 19:51 135 H 05/10/24 19:50 16 05/10/24 19:50 16 05/10/24 19:46 117 H 05/10/24 19:44 130 H 131/60 05/10/24 19:41 05/10/24 19:41 132 H 05/10/24 19:41 123 H 05/10/24 19:36 112 H 05/10/24 19:35 119 H 05/10/24 19:31 120 H 05/10/24 19:30 112 H 16 05/10/24 19:29 112 H 136/60 05/10/24 19:26 115 H 05/10/24 19:21 113 H 05/10/24 19:16 116 H 05/10/24 19:15 16 05/10/24 19:15 16 05/10/24 19:14 120 H 125/57 L 05/10/24 19:11 117 H 05/10/24 19:06 118 H 05/10/24 19:01 111 H 05/10/24 19:00 16 05/10/24 19:00 36.9 C 16 05/10/24 18:56 121 H Pulse Ox O2 Del Method 05/11/24 03:20 99 Room Air 05/10/24 23:40 98 Room Air 05/10/24 23:40 Room Air 05/10/24 22:15 05/10/24 22:13 05/10/24 21:58 05/10/24 21:45 05/10/24 21:43 05/10/24 21:29 05/10/24 21:15 05/10/24 21:13 05/10/24 21:01 100 05/10/24 21:00 05/10/24 20:58 05/10/24 20:56 100 05/10/24 20:52 05/10/24 20:51 100 05/10/24 20:46 100 05/10/24 20:45 05/10/24 20:41 99 05/10/24 20:36 98 05/10/24 20:31 99 05/10/24 20:30 05/10/24 20:28 05/10/24 20:26 97 05/10/24 20:21 98 05/10/24 20:16 98 05/10/24 20:15 05/10/24 20:13 05/10/24 20:11 97 05/10/24 20:06 96 05/10/24 20:04 94 05/10/24 20:01 95 05/10/24 19:58 94 05/10/24 19:56 94 05/10/24 19:51 95 05/10/24 19:50 05/10/24 19:50 05/10/24 19:46 96 05/10/24 19:44 05/10/24 19:41 97 05/10/24 19:41 05/10/24 19:41 82 L 05/10/24 19:36 97 05/10/24 19:35 91 05/10/24 19:31 96 05/10/24 19:30 92 05/10/24 19:29 05/10/24 19:26 94 05/10/24 19:21 96 05/10/24 19:16 96 05/10/24 19:15 05/10/24 19:15 05/10/24 19:14 05/10/24 19:11 96 05/10/24 19:06 96 05/10/24 19:01 97 05/10/24 19:00 05/10/24 19:00 05/10/24 18:56 99 Resident Activity Tracking Resident Involvement: Resident Care Provided Care Provided: OB Delivery
[2024-05-11] MEDS: BUPIVACAINE 0.25% PF 30 ML VIAL EPI STA (07:31)
[2024-05-11] MEDS: LIDOCAINE 2%/EPINEPHRINE 1:200,000 20 ML PF ONE (07:31)
[2024-05-11] MEDS: BUPIVACAINE 0.25% PF 30 ML VIAL ONE (07:31)
[2024-05-11] MEDS: SODIUM CHLORIDE 0.9% PF INJ 10 ML VIAL ONE (07:31)
[2024-05-11] MEDS: fentaNYL citrate PF 100 MCG/2 ML VIAL ONE (07:32)
[2024-05-11] MEDS: LIDOCAINE 2%/EPINEPHRINE 1:200,000 20 ML PF EPI STA (07:32)
[2024-05-11] MEDS: SODIUM CHLORIDE 0.9% PF INJ 10 ML VIAL EPI STA (07:32)
[2024-05-11] MEDS: fentaNYL citrate PF 100 MCG/2 ML VIAL EPI STA (07:32)
[2024-05-11] MEDS: ePHEDrine sulfate 50 MG/ML AMP ONE (07:32)
--- NOTE | 2024-05-11 07:50 | Anesthesia Procedure Note ---
Date of Service May 11, 2024 Anesthesia Post Epidural Note Vital Signs Vital Signs: Temp Pulse Resp BP Pulse Ox O2 Del Method 36.4 C L 93 H 18 125/74 99 Room Air 05/11/24 03:20 05/11/24 03:20 05/11/24 03:20 05/11/24 03:20 05/11/24 03:20 05/11/24 03:20 Notes Mental Status: alert / awake / arousable Nausea / Vomiting: adequately controlled Pain: adequately controlled Airway Patency, RR, SpO2: stable & adequate BP & HR: stable & adequate Hydration State: stable & adequate Neuraxial Anesthesia: was administered and sensory block is resolving Anesthetic Complications: no major complications apparent and Pt Satisfied with anesthetic care Epidural: Removed without complications and With tip intact
[2024-05-11] MEDS: FERROUS SULFATE 325 MG TAB PO SCH (08:08)
[2024-05-11] MEDS: PRENATAL VITAMIN 1 TAB PO SCH (08:08)
[2024-05-11] MEDS: CETIRIZINE HCL 10 MG TABLET PO SCH (08:08)
[2024-05-11 11:35] VITALS: RESP 18
[2024-05-11 19:19] VITALS: O2SAT 98
[2024-05-11] MEDS ORDERED: bisacodyL 5 MG TABEC PO SCH (20:00)
--- NOTE | 2024-05-12 07:36 | Obstetrical Progress Note ---
Date of Service May 12, 2024 Assessment & Plan (1) Vaginal delivery: Plan: 2nd PP Day following with Laceration in 29 years 40+6 at week POG Both mom and baby doing well. Discharge today. Explained danger signs. F/U after 6 weeks in Ob clinic Admission and Anticipated Discharge Date Admission Date: May 10, 2024 Supervising Physician Co-Signing Physician Notes Patient seen with resident and agree with the above findings and plan. Stable for discharge. Subjective 2nd PP Day following with Laceration in 29 years 40+6 at week POG. No active complains Both mom and baby doing well. Pain: Mild, intermittent Lochia: Mild Diet: Regular Ob diet Gas: Passed gas Peeing: Normal, no bladder distension Ambulation: Normally Physical Exam Physical Exam: General: Alert and oriented. No acute distress. CVS: S1 S2+ No murmurs, regular rhythm. Respiratory: CTA bilaterally. No rhonchi, wheezes, or crackles. No increased work of breathing. Abdomen: Bowel sound +. Soft, nontender Uterus: Fundus firm and palpable few cm below the umbilicus. Lower extremities: No LE edema. No deep calf pain. Results & Data Vital Signs (Past 12 Hours) Vital Signs Temp Pulse Resp BP Pulse Ox O2 Del Method 05/11/24 23:20 37.0 C 94 H 18 104/64 98 Room Air Resident Activity Tracking Resident Involvement: Resident Care Provided Care Provided: OB Delivery
[2024-05-12 09:13] VITALS: BP 116/72; TEMP 97.7
[2024-05-12] MEDS: BENZOCAINE 20% SPRY 85 APPLN/85 GM CAN EXT PRN (12:59)
[2024-05-12 14:49] VITALS: PULSE 105
== END 2024-05-12 14:20 | disposition home or self-care (01) | DRG 807 ==
LOC: OPB 23:58 → 4S1 05-10 00:02 → 4E2 05-10 23:23